=== PATIENT | male | born 1990 | race Asian ===

== ENCOUNTER 2023-02-23 19:35 | Emergency (ER) | payer MEDICAID ==
[~2023-02-23] VITALS: Ht 185.4 cm; Wt 59.0 kg
[2023-02-23 20:00] VITALS: BP_SYST 101; PULSE 81; RESP 16; TEMP 97.9; O2SAT 100
[2023-02-23] MEDS ORDERED: KETOROLAC TROMETHAMINE 30 MG VIAL IM ONE ×2 (21:15)
[2023-02-23] MEDS ORDERED: ACETAMINOPHEN 500 MG TABLET PO ONE ×2 (21:15)
[2023-02-23] MEDS ORDERED: NAPR-690 PO (23:18)
[2023-02-24 00:08] VITALS: BP_SYST 110; PULSE 76; RESP 18; TEMP 97.9; O2SAT 98
== END 2023-02-24 00:08 | disposition home or self-care (01) ==
LOC: SED 19:35
DX: S63.501A Unspecified sprain of right wrist, initial encounter (principal); Z91.013 Allergy to seafood; Z79.899 Other long term (current) drug therapy; X58.XXXA Exposure to other specified factors, initial encounter; Y93.89 Activity, other specified; Y92.89 Other specified places as the place of occurrence of the external cause; Y99.8 Other external cause status
CPT/HCPCS: 99283; 73110; 96372; J1885